=== PATIENT | male | born 1935 | race Caucasian/White ===

== ENCOUNTER 2021-08-29 18:25 | Inpatient (IN) | payer MEDICARE ==
[~2021-08-29] VITALS: Ht 188 cm; Wt 77.1 kg
[2021-08-29 21:54] LABS: BASOPHILS ABSOLUTE AUTO 0.02 K/mm3 (0.00-0.23); BASOPHILS PERCENT AUTO 0 % (0-2); EOSINOPHILS ABSOLUTE AUTO 0.02 K/mm3 (0.00-0.68); EOSINOPHILS PERCENT AUTO 0 % (0-6); Hematocrit 42.2 % (37.0-53.0); Hemoglobin 14.1 g/dL (13.5-17.5); IMMATURE GRAN ABSOLUTE AUTO 0.09 K/mm3 (0.00-0.10); IMMATURE GRAN PERCENT AUTO 1 % (0-1); LYMPHOCYTES ABSOLUTE AUTO 0.68 K/mm3 (0.84-5.20); LYMPHOCYTES PERCENT AUTO 4 % (21-46); MONOCYTES PERCENT AUTO 5 % (4-13); Mean Corpuscular HGB 30.3 pg (26.0-34.0); Mean Corpuscular HGB Conc 33.4 g/dL (31.5-36.5); Mean Corpuscular Volume 91 fL (80-100); Mean Platelet Volume 10.5 fL (9.1-12.4); NEUTROPHILS ABSOLUTE AUTO 16.26 K/mm3 (1.96-9.15); NEUTROPHILS PERCENT AUTO 91 % (41-73); Platelet Count 179 K/mm3 (150-400); RDW Coefficient Variation 12.5 % (11.7-14.2); RDW Standard Deviation 41.1 fL (35.1-46.3); Red Blood Cell Count 4.66 M/mm3 (4.30-5.90); White Blood Cell Count 17.87 K/mm3 (4.00-11.30)
[2021-08-29 22:06] LABS: Alanine Aminotransfer (ALT/SGP 28 U/L (12-78); Albumin, Blood 3.4 g/dL (3.4-5.0); Alk Phos 64 U/L (50-136); Anion Gap 6 mmol/L (6-16); Aspartate Aminotrans (AST/SGOT 24 U/L (12-37); Bilirubin, Total 0.6 mg/dL (0.1-1.0); Blood Urea Nitrogen 23 mg/dL (8-24); Bun/Creatinine Ratio 26.9 (12.0-20.0); CO2, Blood 28 mmol/L (21-32); Calcium, Blood 8.6 mg/dL (8.5-10.1); Chloride, Blood 106 mmol/L (98-108); Creatinine, Blood 0.86 mg/dL (0.60-1.20); Globulin, Blood 3.3 g/dL (2.2-4.0); Glomerular Filtration Rate >60 (60-); Glucose, Blood 227 mg/dL (70-99); Potassium, Blood 4.2 mmol/L (3.5-5.5); Sodium, Blood 140 mmol/L (136-145); Total Protein, Blood 6.7 g/dL (6.4-8.2)
[2021-08-29 23:05] LABS: International Normalized Ratio 1.75; Prothrombin Time Results 17.7 Sec (9.7-11.5)
[2021-08-29 23:26] LABS: SARS-Cov-2 (COVID-19) PCR, MMC NEGATIVE (NEGATIVE)
[2021-08-30 05:27] LABS: BASOPHILS ABSOLUTE AUTO 0.02 K/mm3 (0.00-0.23); BASOPHILS PERCENT AUTO 0 % (0-2); EOSINOPHILS PERCENT AUTO 0 % (0-6); Hematocrit 31.3 % (37.0-53.0); Hemoglobin 10.4 g/dL (13.5-17.5); IMMATURE GRAN ABSOLUTE AUTO 0.05 K/mm3 (0.00-0.10); IMMATURE GRAN PERCENT AUTO 1 % (0-1); LYMPHOCYTES ABSOLUTE AUTO 0.49 K/mm3 (0.84-5.20); LYMPHOCYTES PERCENT AUTO 5 % (21-46); MONOCYTES ABSOLUTE AUTO 1.02 K/mm3 (0.16-1.47); MONOCYTES PERCENT AUTO 9 % (4-13); Mean Corpuscular HGB 30.1 pg (26.0-34.0); Mean Corpuscular HGB Conc 33.2 g/dL (31.5-36.5); Mean Corpuscular Volume 91 fL (80-100); Mean Platelet Volume 10.4 fL (9.1-12.4); NEUTROPHILS ABSOLUTE AUTO 9.31 K/mm3 (1.96-9.15); NEUTROPHILS PERCENT AUTO 85 % (41-73); Platelet Count 145 K/mm3 (150-400); RDW Coefficient Variation 12.3 % (11.7-14.2); RDW Standard Deviation 40.9 fL (35.1-46.3); Red Blood Cell Count 3.45 M/mm3 (4.30-5.90); White Blood Cell Count 10.89 K/mm3 (4.00-11.30)
[2021-08-30 05:56] LABS: Alanine Aminotransfer (ALT/SGP 19 U/L (12-78); Albumin, Blood 2.4 g/dL (3.4-5.0); Albumin/Globulin Ratio 0.9 (0.8-1.8); Alk Phos 43 U/L (50-136); Anion Gap 7 mmol/L (6-16); Aspartate Aminotrans (AST/SGOT 12 U/L (12-37); Bilirubin, Total 0.7 mg/dL (0.1-1.0); Blood Urea Nitrogen 21 mg/dL (8-24); Bun/Creatinine Ratio 29.7 (12.0-20.0); CO2, Blood 21 mmol/L (21-32); Calcium, Blood 6.9 mg/dL (8.5-10.1); Chloride, Blood 113 mmol/L (98-108); Creatinine, Blood 0.71 mg/dL (0.60-1.20); Globulin, Blood 2.7 g/dL (2.2-4.0); Glomerular Filtration Rate >60 (60-); Glucose, Blood 145 mg/dL (70-99); Sodium, Blood 141 mmol/L (136-145); Total Protein, Blood 5.1 g/dL (6.4-8.2)
[2021-08-30 13:06] LABS: International Normalized Ratio 1.94; Prothrombin Time Results 19.5 Sec (9.7-11.5)
--- NOTE | 2021-08-30 17:47 | NUR ---
PATIENT CURRENTLY LYING IN BED WITH NO SIGNS OR SYMPTOMS ACUTE DISTRESS NOTED. CALL LIGHT AND WATER IN EASY REACH. ABLE TO MAKE NEEDS AND WANTS KNOWN. PATIENTS LINENS CHANGED TODAY WELL PATIENT CHANGED INTO A PATIENT GOWN. WENT TO CT FOR CT SCAN AND RETURNED. TOLERATED WELL. MEDICATED FOR PAIN PER ORDERS-SEE EMAR. AT BEDSIDE VISITING AT THIS TIME. AAO X 4. PATIENT WILL BE NPO AFTER MIDNIGHT TONIGHT PER ORDERS DUE TO POSSIBILITY OF SURGERY TOMORROW. IVF CONTINUE. WILL MONITOR.
[2021-08-31 04:31] LABS: BASOPHILS ABSOLUTE AUTO 0.02 K/mm3 (0.00-0.23); BASOPHILS PERCENT AUTO 0 % (0-2); EOSINOPHILS ABSOLUTE AUTO 0.04 K/mm3 (0.00-0.68); EOSINOPHILS PERCENT AUTO 0 % (0-6); Hematocrit 25.6 % (37.0-53.0); Hemoglobin 8.6 g/dL (13.5-17.5); IMMATURE GRAN ABSOLUTE AUTO 0.03 K/mm3 (0.00-0.10); IMMATURE GRAN PERCENT AUTO 0 % (0-1); LYMPHOCYTES ABSOLUTE AUTO 1.08 K/mm3 (0.84-5.20); LYMPHOCYTES PERCENT AUTO 12 % (21-46); MONOCYTES PERCENT AUTO 12 % (4-13); Mean Corpuscular HGB 30.5 pg (26.0-34.0); Mean Corpuscular HGB Conc 33.6 g/dL (31.5-36.5); Mean Corpuscular Volume 91 fL (80-100); Mean Platelet Volume 10.3 fL (9.1-12.4); NEUTROPHILS ABSOLUTE AUTO 7.06 K/mm3 (1.96-9.15); NEUTROPHILS PERCENT AUTO 76 % (41-73); Platelet Count 109 K/mm3 (150-400); RDW Coefficient Variation 12.6 % (11.7-14.2); RDW Standard Deviation 41.7 fL (35.1-46.3); Red Blood Cell Count 2.82 M/mm3 (4.30-5.90); White Blood Cell Count 9.33 K/mm3 (4.00-11.30)
[2021-08-31 05:07] LABS: Anion Gap 4 mmol/L (6-16); Blood Urea Nitrogen 20 mg/dL (8-24); CO2, Blood 28 mmol/L (21-32); Calcium, Blood 8.2 mg/dL (8.5-10.1); Chloride, Blood 107 mmol/L (98-108); Creatinine, Blood 0.74 mg/dL (0.60-1.20); Glomerular Filtration Rate >60 (60-); Glucose, Blood 98 mg/dL (70-99); Potassium, Blood 4.3 mmol/L (3.5-5.5); Sodium, Blood 139 mmol/L (136-145)
[2021-08-31 07:55] LABS: International Normalized Ratio 1.93; Prothrombin Time Results 19.4 Sec (9.7-11.5)
--- NOTE | 2021-08-31 16:26 | NUR ---
NOTIFIED DR NORWOOD OF PATIENT WITH FEVER OF 100.3. NO NEW ORDERS RECIEVED OTHER THAN GIVE TYLENOL.
[2021-08-31 17:48] LABS: Source, Urine Clean Catch
[2021-08-31 17:53] LABS: Appearance, Urine Clear (Clear); Bilirubin, Urine Neg (Neg); Blood, Urine Neg (Neg); Color, Urine Yellow (P-Yellow); Glucose Qualitative, Urine Neg (Neg); Ketones, Urine Neg (Neg); Leukocyte Esterase, Urine Neg (Neg); Nitrite, Urine Neg (Neg); Protein, Urine Neg (Neg); Specific Gravity, Urine 1.015 (1.003-1.022); Urobilinogen, Urine NORM (Normal)
--- NOTE | 2021-08-31 18:21 | NUR ---
PATIENT CURRENTLY SITTING UP IN BED JUST FINISHED EATING DINNER. PATIENT IS AAOX4. ABLE TO MAKE NEEDS AND WANTS KNOWN. PATIENT HAS HAD A LOW GRADE FEVER TODAY, WHEN DR GALLARDO CAME IN TO TALK TO PATIENT FREDERIC HE ORDERED A UA WITH CULTURE IF INDICATED. THE UA WAS SENT. PATIENT HAD MANY QUESTIONS FOR DR PAULINA DE LA GARZA REGARDING A TRANSFER TO [facility] IN [place] VERSUS HAVING SURGERY HERE. PATIENT WILL BE NPO AFTER MIDNIGHT TONIGHT JUST IN CASE HE IS ABLE OR WANTS TO HAVE SURGERY HERE TOMORROW. DR GALLARDO TOLD PATIENT HE WOULD BE BY IN THE MORNING TO DISCUSS OPTIONS WITH PATIENT FURTHER. PATIENT IS ON WAITING LIST FOR TRANSFER TO [facility] IN [place] BUT THERE IS ABOUT A 72 HR WAIT FOR A BED. PATIENT HAS NO COMPLAINTS OF PAIN AT THIS TIME. SCD'S PLACED ON PATIENT. WILL MONITOR.
[2021-09-01 04:55] LABS: Hematocrit 21.4 % (37.0-53.0); Hemoglobin 7.4 g/dL (13.5-17.5); Mean Corpuscular HGB 30.8 pg (26.0-34.0); Mean Corpuscular HGB Conc 34.6 g/dL (31.5-36.5); Mean Corpuscular Volume 89 fL (80-100); Mean Platelet Volume 10.7 fL (9.1-12.4); Platelet Count 93 K/mm3 (150-400); RDW Coefficient Variation 12.5 % (11.7-14.2); RDW Standard Deviation 40.9 fL (35.1-46.3); White Blood Cell Count 7.68 K/mm3 (4.00-11.30)
[2021-09-01 05:25] LABS: Anion Gap 6 mmol/L (6-16); Blood Urea Nitrogen 15 mg/dL (8-24); Bun/Creatinine Ratio 20.9 (12.0-20.0); CO2, Blood 25 mmol/L (21-32); Chloride, Blood 109 mmol/L (98-108); Creatinine, Blood 0.72 mg/dL (0.60-1.20); Glomerular Filtration Rate >60 (60-); Glucose, Blood 94 mg/dL (70-99); Potassium, Blood 3.7 mmol/L (3.5-5.5); Sodium, Blood 140 mmol/L (136-145)
[2021-09-01 05:36] LABS: International Normalized Ratio 1.21; Prothrombin Time Results 12.5 Sec (9.7-11.5)
--- NOTE | 2021-09-01 06:30 | NUR ---
PT IS IN BED AT THIS TIME WHERE HE REMAINS ON BEDREST SECONDARY TO FRACTURED RIGHT HIP. DENIES ANY PAIN, ASSISTED WITH CARE AND ADLS IN BED, ASSISTED WITH REPOSITIONING FOR COMFORT. CALL GABRIEL PLACED NEAR HIM AND URGED TO CALL FOR HELP WHEN ASSISTANCE IS NEEDED HE IS MONITORED.
--- NOTE | 2021-09-01 10:12 | NUR ---
PATIENT STATES HE WOULD LIKE TO PROCEED WITH SURGERY HERE AT THIS HOSPITAL INSTEAD OF TRANSFERING TO [facility]. PATIENT HAS FEVER THIS AM, MEDICATED WITH TYLENOL. NO SIGNS OR SYMPTOMS ACUTE DISTRESS NOTED AT THIS TIME. NO COMPLAINTS OF PAIN VOICED. NO COMPLAINTS OF NAUSEA VOICED. GIVEN IS THIS AM AND TAUGHT TO USE IT.
--- NOTE | 2021-09-01 14:52 | NUR ---
INTO SDS VIA BED FROM SURG FLOOR. History, Chart, Medications and Allergies reviewed before start of procedure.Patient confirms NPO status and agrees with scheduled surgery. Lungs clear T/O to Auscultation.
--- NOTE | 2021-09-01 16:09 | NUR ---
09/01/21 Antonia Jensen PATIENT POSITIONED ON THE ALEKSANDR FX TABLE WITH SURGEON ASSIST. [id number] PADDED, POSITIONED AND SECURED. FINAL POSITION CLEARED BY THE OR TEAM.
[2021-09-01 17:33] LABS: Hematocrit 24.9 % (37.0-53.0); Hemoglobin 8.4 g/dL (13.5-17.5)
--- NOTE | 2021-09-01 19:36 | NUR ---
PATIENT ARRIVED BACK TO ROOM FROM PACE AT 1800 TONIGHT. PATIENT AWAKE AND ALERT. COMPLAINS OF SHOULDER PAIN, REPOSITIONED AND PAIN MEDS GIVEN, MEDS EFFECTIVE. PATIENT TOLERATING PO AT THIS TIME. AT BEDSIDE. DRESSING TO RIGHT HIP CDI. ABLE TO MAKE NEEDS AND WANTS KNOWN. PATIENT TO RECIEVE 1 UNIT OF PRBC TONIGHT PER ORDERS. REPORT GIVEN TO IRAJ NAVARRO
[2021-09-02 04:17] LABS: BASOPHILS PERCENT AUTO 0 % (0-2); EOSINOPHILS ABSOLUTE AUTO 0.01 K/mm3 (0.00-0.68); EOSINOPHILS PERCENT AUTO 0 % (0-6); Hematocrit 24.9 % (37.0-53.0); Hemoglobin 8.4 g/dL (13.5-17.5); IMMATURE GRAN ABSOLUTE AUTO 0.05 K/mm3 (0.00-0.10); IMMATURE GRAN PERCENT AUTO 1 % (0-1); LYMPHOCYTES ABSOLUTE AUTO 0.44 K/mm3 (0.84-5.20); LYMPHOCYTES PERCENT AUTO 5 % (21-46); MONOCYTES ABSOLUTE AUTO 0.85 K/mm3 (0.16-1.47); MONOCYTES PERCENT AUTO 9 % (4-13); Mean Corpuscular HGB 30.5 pg (26.0-34.0); Mean Corpuscular HGB Conc 33.7 g/dL (31.5-36.5); Mean Corpuscular Volume 91 fL (80-100); Mean Platelet Volume 10.6 fL (9.1-12.4); NEUTROPHILS ABSOLUTE AUTO 8.43 K/mm3 (1.96-9.15); NEUTROPHILS PERCENT AUTO 86 % (41-73); Platelet Count 114 K/mm3 (150-400); RDW Coefficient Variation 12.6 % (11.7-14.2); RDW Standard Deviation 41.4 fL (35.1-46.3); Red Blood Cell Count 2.75 M/mm3 (4.30-5.90); White Blood Cell Count 9.78 K/mm3 (4.00-11.30)
[2021-09-02 04:27] LABS: International Normalized Ratio 1.13; Prothrombin Time Results 11.8 Sec (9.7-11.5)
[2021-09-02 04:34] LABS: Anion Gap 6 mmol/L (6-16); Blood Urea Nitrogen 17 mg/dL (8-24); Bun/Creatinine Ratio 23.9 (12.0-20.0); CO2, Blood 24 mmol/L (21-32); Chloride, Blood 107 mmol/L (98-108); Creatinine, Blood 0.71 mg/dL (0.60-1.20); Glomerular Filtration Rate >60 (60-); Glucose, Blood 129 mg/dL (70-99); Magnesium, Blood 1.7 mg/dL (1.6-2.4); Potassium, Blood 3.9 mmol/L (3.5-5.5); Sodium, Blood 137 mmol/L (136-145)
--- NOTE | 2021-09-02 05:12 | NUR ---
PT IS A/OX2-3. FORGETFUL AT TIMES. ABLE TO MAKE HIS NEEDS KNOWN. RT HIP INCISION COVERED W/ABD DRESSING. DRESSING IS CDI. GOOD CSM'S. DENIES ANY NUMBNESS OR TINGLING. WILL HAVE THERAPY TODAY. TTWB TO RLE. PAIN WELL CONTROLLED W/PRN MEDS PER EMAR. RECEIVED 1 UNIT PRBC'S. NO ADVERSE REACTION FROM PRBC. H/H THIS AM: 8.4/24.9 TOLERATING REG DIET WELL. NO N/V. VOIDING W/O DIFFICULTY.
--- NOTE | 2021-09-02 14:22 | NUR ---
DR GALLARDO CHANGED PATIENTS DRESSING TO RIGHT HIP AT THIS TIME. THERE ARE 3 INCISIONS TO RIGHT HIP WITH MELY. CLEANSED WOUND WITH PERIOXIDE, PAT DRY WITH GAUZE AND PLACED AQUACEL DRESSINGS X 3 TO WOUNDS. PATIENT TOLERATED WELL, DR GALLARDO ANSWERED ALL PATIENTS QUESTIONS AT THIS TIME. .
--- NOTE | 2021-09-02 17:34 | NUR ---
PATIENT HAD A GOOD DAY TODAY. PATIENT WORKED WITH BOTH PT AND OT. WITH OT PATIENT TRANSFERED TO CHAIR WITH ASSIST OF 2 STAFF TO KEEP TTWB STATUS. HE TOLERATED WELL. HE WAS UNABLE TO TRANSFER BACK TO BED WITH PT TODAY. HE WAS ASSIST BACK TO BED BY SLIDE SHEET FROM CHAIR TO BED WITH 4 STAFF ASSIST. IT WENT VERY SMOOTHLY. MEDICATED PER ORDERS-SEE EMAR. DRESSING CHANGED BY DR GALLARDO TO RIGHT HIP. DRESSING IS CDI. TOLERATED WELL. NO SIGNS OR SYMPTOMS ACUTE DISTRESS NOTED. CALL LIGHT AND WATER IN EASY REACH. ABLE TO MAKE NEEDS AND WANTS KNOWN. AT BEDSIDE VISITING AT THIS TIME. WILL MONITOR.
--- NOTE | 2021-09-03 04:50 | NUR ---
PT IS A/OX3. ABLE TO MAKE HIS NEEDS KNOWN. NO EVENTS OVER NIGHT. PT IS POD #2 FOR A CLOSED REDUCTION AND NAILING TO RT HIP FX. THREE INCISIONS TO RT HIP, ALL COVERED W/AQUACELS AND ALL CDI. PAIN CONTROLLED W/PRN MEDS PER EMAR. SLEPT WELL.
[2021-09-03 05:01] LABS: Hematocrit 24.6 % (37.0-53.0); Hemoglobin 8.3 g/dL (13.5-17.5); Mean Corpuscular HGB 30.6 pg (26.0-34.0); Mean Corpuscular HGB Conc 33.7 g/dL (31.5-36.5); Mean Corpuscular Volume 91 fL (80-100); Mean Platelet Volume 10.4 fL (9.1-12.4); Platelet Count 150 K/mm3 (150-400); RDW Standard Deviation 41.9 fL (35.1-46.3); Red Blood Cell Count 2.71 M/mm3 (4.30-5.90)
[2021-09-03 05:08] LABS: International Normalized Ratio 1.1; Prothrombin Time Results 11.5 Sec (9.7-11.5)
--- NOTE | 2021-09-03 17:25 | NUR ---
PATIENT SITTING UP IN CHAIR AT THIS TIME EATING SUPPER. NO SIGNS OR SYMPTOMS ACUTE DISTRESS NOTED. CALL LIGHT AND WATER IN EASY REACH. ABLE TO MAKE NEEDS AND WANTS KNOWN. COVID TEST COMPLETE AND SENT TO LAB. PATIENT TO DISCHARGE TOMORROW AT 10AM [facility]IA [facility] TO [facility] IN [facility]. THE NUMBER TO CALL TO GIVE REPORT TOMORROW IS [phone] [facility]. WILL PASS THIS ON IN REPORT TO THE NURSE FREDERIC FOR THE NURSE IN THE AM. PATIENT IS AWARE OF DISCHARGE STATUS. PATIENT GIVEN MIRALAX AND PRUNE JUICE FOR BOWEL MOVEMENT, NO BM OF YET. PATIENT WILL GET DUCOLAX SUPPOSITORY IF NO BM WHEN UP TO BEDSIDE COMMODE AFTER DINNER TONLUC. PATIENT WORKED WITH PT AND OT TODAY AND DID WILL. WILL MONITOR.
[2021-09-03 18:05] LABS: SARS-Cov-2 (COVID-19) PCR, MMC NEGATIVE (NEGATIVE)
[2021-09-04 06:03] LABS: International Normalized Ratio 1.39; Prothrombin Time Results 14.3 Sec (9.7-11.5)
--- NOTE | 2021-09-04 07:14 | NUR ---
PT IS A/OX3, WITH SOME FORGETFULLNESS/CONFUSING DURING THE NIGHT. NO EVENTS OVER NIGHT. TTWB TO RLE. RT HIP W/3 INCISIONS, ALL COVERED W/AQUACEL AND ARE CDI. HAD BM DURING NIGHT, USED BED MODI. DENIED ANY N/V. PAIN MANAGED W/PRN MEDS PER EMAR. PT WILL D/C THIS AM TO SNF IN [place].
--- NOTE | 2021-09-04 10:22 | NUR ---
PATIENT WAS JUST PICKED UP BY TRANSPORT TO BE TAKEN TO [facility] IN [place]. POD 3 RIGHT HIP NAILING PATIENT IS ALERT AND ORIENTED X3 AND CAN BE MORE FORGETFUL AT NIGHT. VS ARE WNL AND IS ON RA. PAIN IS MANAGED WITH 2 NORCOS PO. HE IS TOLERATING PO INTAKE AND IS VOIDING. HIS RIGHT HIP HAS 3 AQUACEL THAT ARE C/D/I. PATIENT DENIES NUMBNESS AND TINGLING. HE IS ABLE TO WIGGLE FINGERS AND TOES. HE IS TOE TOUCH WT BEARING. IV WAS TAKEN OUT AND WAS WNL. HE IS A 2 PERSON SBA WITH FWW. HE HAS HIS ITEMS GATHERED IN BAGS. HE WAS TAKEN BY [facility]. THIS NURSE JUST GAVE REPORT TO CORA GALO AT [facility]. HIS HARD PERSCRIPTION IS IN THE FOLDER WITH ALL OF HIS PAPER WORK. HE WAS ALSO SENT WITH EXTRA AQUACELS.
== END 2021-09-04 10:30 | DRG 482 ==
LOC: EDBD 18:25 → ER 18:25 → SURS 22:24
PROVIDERS: Emergency Medicine; Internal Medicine; Orthopaedic Surgery; ADMIT Internal Medicine
PROC: 0QS636Z Reposition Right Upper Femur with Intramedullary Internal Fixation Device, Percutaneous Approach (ICD-10-PCS; principal; 2021-09-01 14:30)
DX: S72.141A Displaced intertrochanteric fracture of right femur, initial encounter for closed fracture (principal); Z20.822 Contact with and (suspected) exposure to COVID-19; Z66 Do not resuscitate; R50.9 Fever, unspecified; D64.89 Other specified anemias; Z96.642 Presence of left artificial hip joint; Z79.01 Long term (current) use of anticoagulants; I48.0 Paroxysmal atrial fibrillation; M16.11 Unilateral primary osteoarthritis, right hip; I10 Essential (primary) hypertension; Z28.21 Immunization not carried out because of patient refusal; N40.0 Benign prostatic hyperplasia without lower urinary tract symptoms; W19.XXXA Unspecified fall, initial encounter
CPT/HCPCS: 36415; 36430; 73502; 73560-RT; 73700; 76377; 80048; 80053; 81003; 83735; 85014; 85018; 85025; 85027; 85610; 86850; 86900; 86901; 86923; 93005; 93010; 96374; 96375; 97110; 97116; 97162; 97166; 97530; 97535; 99284-25; A9270; C1713; C1769; J0690; J1100; J1170; J1940; J2270; J2405; J2704; J3010; J7030; J7120; P9016; U0004